=== PATIENT | male | born 1945 | race Caucasian/White ===

== ENCOUNTER 2017-04-24 09:53 | Inpatient (IN) ==
[2017-04-24] MEDS ORDERED: DILAUDID IV ONE ×2 (11:26→14:22)
[2017-04-24] MEDS ORDERED: NS 1,000 ML IV ONE ×2 (11:26→16:41)
[2017-04-24] MEDS ORDERED: ZOFRAN IV ONE ×2 (11:26→14:24)
[2017-04-24 11:35] LABS: BASO% 0.2 % (0.0-0.8); EOS# 0.02 X1000 (0.0-0.7); EOS% 0.1 % (0.0-10.0); HEMOGLOBIN 16.6 g/dL (14.0-18.0); IMM GRAN# 0.05 X1000 (0.0-0.04); IMM GRAN% 0.3 % (0.0-0.5); LYMPH% 6.6 % (20.5-51.1); MANUAL DIFF NEEDED? NO; MCHC 33.9 g/dL (33-37); MCV 91.6 FL (81-99); MONO# 1.04 X1000 (0.11-0.59); MONO% 6.3 % (1.7-9.3); MPV 11.8 FL (7.4-10.4); NEUT% 86.5 % (42.2-75.2); PLT 220 X1000 (130-400); RBC 5.35 XMIL (4.7-6.1)
[2017-04-24 12:00] LABS: AGAP 13; ALBUMIN 4.5 g/dL (3.5-5.0); ALKALINE PHOSPHATASE 96 U/L (32-122); AMYLASE 1173 U/L (20-200); BUN 15 mg/dL (8-22); CALCIUM 9.6 mg/dL (8.8-10.2); CHLORIDE 96 mmol/L (98-107); COSMO 280; GOT 108 U/L (10-34); GPT 125 U/L (10-44); POTASSIUM 4.2 mmol/L (3.5-5.1); SODIUM 138 mmol/L (136-145); TCO2 29 mmol/L (25-35); TOTAL BILIRUBIN 0.44 mg/dL (0.20-1.00); TOTAL PROTEIN 7.7 g/dL (6.3-8.3)
[2017-04-24 12:03] LABS: URINE CULTURE NEEDED? NO; URINE MICRO REVIEW NEEDED? NO; URINE SOURCE CLEAN CATCH
[2017-04-24 12:14] LABS: LIPASE 1677 U/L (13-60)
[2017-04-24 12:16] LABS: BILIRUBIN URINE NEGATIVE (NEGATIVE); BLOOD URINE NEGATIVE (NEGATIVE); COLOR YELLOW; GLUCOSE URINE TRACE mg/dL (NEGATIVE); LEUKOCYTES URINE NEGATIVE (NEGATIVE); NITRITE URINE NEGATIVE (NEGATIVE); PH URINE 6.5; PROTEIN URINE 30 mg/dL (NEGATIVE); SP GRAVITY URINE 1.021; TURBIDITY URINE CLEAR (CLEAR); UROBILINOGEN URINE 2 mg/dL (NORMAL)
[2017-04-24 12:17] LABS: UR EPITHELIAL CELLS <10 /HPF (<10); URINE BACTERIA NEGATIVE /HPF; URINE RBC <10 /HPF (<10); URINE WBC <10 /HPF (<10)
--- NOTE | 2017-04-24 13:22 | Diag Imaging Result Doc PS360 ---
EXAM: CT ABD/PELVIS W/ IV CONT ONLY HISTORY: abdominal pain TECHNIQUE: CT of the abdomen with intravenous contrast and reduced dose (clarity.) COMMENT: There are no previous studies. There are some dependent atelectasis in both lung bases. There is atherosclerotic calcification throughout the aorta. There is no evidence of aneurysm. There are calcifications in the proximal renal arteries. There is no evidence of obstruction of the mesenteric arteries. There is inflammatory fluid surrounding the pancreas. No evidence of abscess is present. There is some suggestion of a small area of decreased contrast enhancement in the neck of the pancreas which may indicate some necrosis. There is no evidence of cholelithiasis. There are granulomata in the liver. There are granulomata in the spleen. The spleen is not enlarged. The adrenal glands are not apparently enlarged. There is no evidence of hydronephrosis or mass in the kidneys. The portal vein is patent. There is no evidence of significant adenopathy or bowel obstruction. CT of the pelvis with intravenous contrast there is a fairly large amount of stool in the distal sigmoid colon. There is fluid in the rectovesical pouch. There is ankylosis of both sacroiliac joints and degenerative change in the lumbar spine. IMPRESSION: Fairly severe pancreatitis with questionable areas of necrosis in the neck of the pancreas. Minimal free intraperitoneal fluid. Constipation. Electronically signed by Saul Larkin 04/24/2017 1:20 PM
[2017-04-24] MEDS ORDERED: ROCEPHIN 1 GM/NS 1 GM/50 ML IVPB IV ONE (14:24)
[2017-04-24] MEDS ORDERED: ZOFRAN IV PRN (15:05)
[2017-04-24 15:34] LABS: HEMOGLOBIN A1C 5.6 % (4.8-6.0)
[2017-04-24 15:37] LABS: HDL 28 mg/dL (35-55); LDL 89 mg/dL; TRIGLYCERIDES 339 mg/dL (39-160); VLDL 68 mg/dL
[2017-04-24 15:38] LABS: FREE T4 1.18 ng/dL (0.93-1.70)
[2017-04-24 15:39] LABS: UR AMPHETAMINES QUAL NONE DETECTED (NONE DETECT); UR BARBITUATES QUAL NONE DETECTED (NONE DETECT); UR BENZODIAZEPIN QUAL NONE DETECTED (NONE DETECT); UR CANNABINOIDS QUAL NONE DETECTED (NONE DETECT); UR COCAINE QUAL NONE DETECTED (NONE DETECT); UR METHADONE QUAL NONE DETECTED (NONE DETECT); UR OPIATES QUAL NONE DETECTED (NONE DETECT); UR OXYCODONE QUAL NONE DETECTED (NONE DETECT); UR PCP QUAL NONE DETECTED (NONE DETECT)
--- NOTE | 2017-04-24 15:44 | HISTORY AND PHYSICAL ---
CHIEF COMPLAINT: Abdominal pain. PRIMARY CARE PHYSICIAN: Malcolm Wade MD. HISTORY OF PRESENT ILLNESS: Mr. Powell is a 71-year-old male with a history of SVT, GERD and BPH who presents with acute onset of abdominal pain that woke him up this morning around 4 a.m. He reports he awoke with a very sharp epigastric pain radiating directly into his back. The pain was unrelenting and constant and it was associated with 2 episodes of emesis and he came to the ER for evaluation. He denies any fevers or chills. He denies any hematemesis. He denies constipation, diarrhea, or hematochezia/melena. He denies any history of alcohol or drug use, he was in his normal state of health yesterday evening before he went to bed. When he came to the ER today his labs were consistent with pancreatitis and a CT showed pancreatic stranding and questionable area of necrosis in the neck of the pancreas. His vitals are stable, but he does have a white count of almost 17. We are going to admit him for further treatment and evaluation. PAST MEDICAL HISTORY: 1. GERD. 2. Hiatal hernia. 3. Hypertension. 4. Supraventricular tachycardia. 5. Chronic back pain. 6. Benign prostatic hypertrophy. SURGICAL HISTORY: Bilateral knee arthroplasties. SOCIAL HISTORY: Patient denies tobacco, alcohol or drug use. 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 He is . His daughter is at the bedside. He lives in [place]. FAMILY HISTORY: Noncontributory. REVIEW OF SYSTEMS: Fourteen-point review of systems obtained and found to be negative with the exception of the HPI. ALLERGIES: Meperidine and morphine. MEDICATIONS: Aspirin 81 mg daily. Zebeta 5 mg daily. Digoxin 250 mcg p.o. a.m. Naproxen 500 mg b.i.d. Omeprazole 40 mg a.m. Flomax 0.4 mg daily. PHYSICAL EXAMINATION: VITAL SIGNS: Blood pressure is 175/94, heart rate 66, respiratory rate is 18, O2 saturation 95% on room air. Temperature is afebrile. GENERAL: This is a well-developed, well-nourished, 71-year-old male, lying in hospital bed in no acute distress. NEUROLOGIC: The patient is awake, alert, and oriented. He follows commands without focal deficits. HEENT: Atraumatic, normocephalic. His pupils are equal, round, reactive to light. Oral mucosa is moist. Trachea is midline. There is no JVD or carotid bruits. CHEST: Clear to auscultation bilaterally. CARDIOVASCULAR: Regular rate and rhythm. S1-S2 is noted. No murmurs, gallops , clicks, rubs. GASTROINTESTINAL: Fairly severe epigastric tenderness to palpation, but belly is overall soft and nondistended. Bowel sounds are hypoactive. EXTREMITIES: Trace edema. No clubbing or cyanosis. Pulses are palpable bilaterally. DIAGNOSTIC DATA/LABORATORY: CT of the abdomen and pelvis shows fairly severe pancreatitis with questionable necrosis about the head. WBC 16.64. Hemoglobin 16.6, hematocrit 49. Platelet count 220,000. Sodium 138, potassium 4.2, chloride 96, CO2 29, anion gap 13, BUN 15, creatinine 0.8, glucose 164, calcium 9.6, bilirubin 0.44, AST 108, ALT 125, alkaline phosphatase 96, albumin 4.5, amylase 1173, lipase 1677. UA is negative for acute process. ASSESSMENT AND PLAN: 1. Acute pancreatitis: Etiology is unclear at this time, but we will begin evaluation with a right upper quadrant ultrasound to look at his gallbladder, we will check alcohol level and drug screen, thyroid function, IgG subclass and lipid panel. We will be aggressive with fluid resuscitation. He has been given a liter in the emergency room. We will continue with 2 more liters wide-open and then go to 150 mL an hour. Given the severity of the pancreatitis, we are going to consult Gastroenterology as well. We will keep him nothing per oral with antiemetics, pain medication and intravenous proton pump inhibitor. We are also going to add Zosyn antibiotics for leukocytosis. 2. Leukocytosis: We will check blood cultures and start Zosyn. We will also check a portable chest x-ray. 3. Hypertension: Chronic and stable. We will treat with IV blood pressure medications as needed. 4. History of supraventricular tachycardia: We will check a digoxin level and hold his digoxin today. His heart rate is stable. 5. Deep venous thrombosis prophylaxis with Lovenox. Further recommendations to follow. Dictated by MELINA Lima for Nelly Silva MD cc: Jori J. MELINA Altamirano MD John V. Irle, MD The patient was seen and examined by me. I agree with the assessment and plan as dictated. GERMAND
--- NOTE | 2017-04-24 16:01 | Diag Imaging Result Doc PS360 ---
EXAM: US GB < RUQ (LIMITED) HISTORY: acute pancreatitis TECHNIQUE: Transabdominal scan COMMENT: The study is markedly suboptimal due to the patient's body habitus. The liver is hyperechoic and poor detail is seen in the deeper portions. The gallbladder may contain some sediment. There is no sonographic Pro sign. No para cholecystic fluid is present. The aorta and inferior vena cava are not well demonstrated. The pancreas is obscured. There is antegrade flow in the portal vein. The common bile duct measures 4 mm. Right kidneys without evidence of hydronephrosis or mass. No abnormal fluid collections are demonstrated. IMPRESSION: Possibility of small soft stones or sludge in the gallbladder cannot be excluded. No evidence of acute cholecystitis. Hepatic steatosis. Electronically signed by Saul Larkin 04/24/2017 3:58 PM
[2017-04-24] MEDS ORDERED: NS 1,000 ML IV SCH (17:06)
[2017-04-24] MEDS ORDERED: NS 2,000 ML IV ONE (17:06)
--- NOTE | 2017-04-24 17:13 | CONSULTATION ---
DATE OF CONSULTATION: 04/24/2017 ADMITTING PHYSICIAN: Dr. Kwan. PRIMARY CARE PHYSICIAN: Dr. Malcolm Wade. REASON FOR CONSULTATION: Necrotizing pancreatitis. HISTORY OF PRESENT ILLNESS: Mr. Powell is a 71-year-old male who was admitted today through the emergency room with epigastric pain of acute onset. According to the patient he woke up at 4:00 a.m. today with severe epigastric pain. He also developed nausea and vomiting. He threw up twice at home which was undigested food and clear stuff. He did not notice any blood in the vomitus. He ate 2 slices of pizza last night before going to bed. He denied having any previous episodes of similar pain in the past. He has had EGD colonoscopy done many years ago by Dr. Osborn and at that time was told he has reflux disease, hiatal hernia and colon was normal. The patient in the ER had blood work which showed evidence of elevated lipase of 1677, amylase of 1173. He had a CT scan of the abdomen and pelvis done which showed severe pancreatitis with questionable necrosis about the head/neck of the pancreas. The patient denies any history of alcohol use. He denies any prior history of pancreatitis and denies any family history of pancreatitis or pancreatic disorders. He denies any prior known history of severe hypertriglyceridemia or any evidence of problems with a calcium level in the blood. He still has a gallbladder but denies any prior history of any gallbladder problems. In the hospital he has been given IV fluids, IV pain control, IV antiemetics. His last bowel movement was yesterday AM. PAST MEDICAL HISTORY: 1. History of reflux disease. 2. Hiatal hernia. 3. Hypertension. 4. Supraventricular tachycardia. 5. Chronic back pain. 6. BPH. SURGICAL HISTORY: Is bilateral knee arthroplasties and EGD and colonoscopy many years ago by Dr. Osborn. SOCIAL HISTORY: Denies history of tobacco, alcohol or illicit drugs. 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 He is . He lives in [place]. FAMILY HISTORY: Denies history of pancreatitis with the family. REVIEW OF SYSTEMS: Denies any current fevers, rigors, or chills, chest pain, shortness of breath, dyspnea at rest. Denies any genitourinary or neurologic complaints. Denies history of vomiting blood, passing blood in the stools. ALLERGIES TO: Meperidine and morphine. USUAL MEDICATIONS AT HOME INCLUDE: 1. Aspirin 81 every day. 2. Zebeta 5 mg every day. 3. Naproxen 5 mg p.o. b.i.d. 4. Omeprazole 40 mg daily. 5. Flomax 0.4 mg daily. MEDICATIONS IN THE HOSPITAL: Were reviewed and include Dilaudid IV once, Zofran IV once. Rocephin IV once 1 g. IV fluids at 1 L wide open. He is NPO. PHYSICAL EXAM: Temperature of 97.4, pulse rate of 64, respiratory rate 17, blood pressure 172/90, saturating 94% room air. Body weight of 155 pounds. BMI 22.9 kg.General Appearance: Moderately built, moderately nourished, lying in bed, in distress with abdominal pain. HEENT: No pallor. No icterus. Pupils equal, react to light. Neck: Supple. Chest: Reveals irregular rhythm. No murmur. Abdomen: Discomfort and tenderness epigastrium. No rebound, no guarding. Bowel sounds are hypoactive. No hepatosplenomegaly. Extremities: No cyanosis, clubbing, edema. Neuro: Alert, awake, oriented. LABS: Hemoglobin and hematocrit is 16.6 and 49, white count 16.64, platelet count of 220,000. MCV of 91.6. Sodium 130, potassium 4.2, chloride 96, bicarb 29, anion gap 13. BUN of 15, creatinine 0.8, glucose of 164. Calcium 9.6, magnesium 2. Ferritin of 359. Total bilirubin is 0.44. AST 108, ALT 125. Alkaline phosphatase 96. Total protein 7.7, albumin of 4.5. Triglycerides 339, cholesterol 195. HDL 28, amylase of 1173, lipase of 1677. B12 of 492. Folate of 14. TSH 3.9. Urinalysis showing positive protein, trace ketones. Toxicology screen is negative. Plasma alcohol level was 0. CT scan of the abdomen and pelvis done on 04/24/2017 showed: 1. Some dependent atelectasis in both lung bases. 2. Atherosclerotic calcifications throughout the aorta. 3. Calcifications in the proximal renal arteries. 4. No evidence of obstruction of the mesenteric arteries. 5. Inflammatory fluid surrounding the pancreas. No evidence of any abscess is present. 6. Small area of decreased contrast enhancement in the neck of the pancreas which may indicate early some necrosis. No evidence of cholelithiasis. There are granulomata in the liver. There are granulomata in the spleen. The spleen is not enlarged. Portal vein is patent. Large amount of stool in the distal sigmoid colon. Ankylosis of both sacral iliac joints and degenerative changes of the lumbar spine. Ultrasound of the abdomen was done today which showed possibility of small gallstones or sludge in the gallbladder. No evidence of any acute cholecystitis. Hepatic steatosis. CBD measuring 4 mm. IMPRESSION AND PLAN: 1. Gallstone pancreatitis. Liver enzymes elevated, elevated pancreatic enzymes and ultrasound showing possible gallstones and gallbladder sludge. 2. Constipation. 3. Reflux disease. 4. Arthritis. 5. BPH. 6. Hiatal hernia. RECOMMENDATIONS: 1. Will keep the patient on aggressive IV fluids. Will keep vitamin fluids under the 1st 3 L and then will switch him to IV normal saline at 250 mL/h for the next 24 hours. 2. Continue on IV antiemetics, IV pain control. We will keep him on IV Protonix for GI prophylaxis. 3. We will check his labs, amylase, lipase and CBC and CMP in the morning. 4. Patient will be NPO for the next 24 hours until he is able to pass flatus and his nausea resolves. We will reassess in the morning and decide if he can be started on clear liquid diet. We will also call General Surgery consult as the patient likely has gallstone pancreatitis and will need cholecystectomy at some point during this admission. 5. Will avoid any kind of hepatotoxic and pancreatic toxic drugs. We will follow along and I discussed the above plan with the patient and all questions answered. cc: MD Malcolm Juarez MD Katherine Takundwa, MD MTDD
[2017-04-24] MEDS: PROTONIX IV SCH (17:35)
[2017-04-24] MEDS: SODIUM CHLORIDE 0.9% INJ SCH (17:35)
[2017-04-24] MEDS: ZOSYN 3.375 GM/NS 3.375 GM/50 ML IVPB IV SCH ×2 (17:38→22:43)
[2017-04-24] MEDS: LOVENOX SUBQ SCH (17:43)
--- NOTE | 2017-04-24 18:14 | CONSULTATION ---
DATE OF CONSULTATION: 04/24/2017 CHIEF COMPLAINT: Epigastric pain. HISTORY: This is a 71-year-old, white male who reports the onset of epigastric pain radiating into his back last night. He had pizza last night for supper. The pain awakened him and then it worsened so he sought medical attention. He does have some nausea and vomiting with this. Denies fever, chills, constipation, diarrhea. Denies any recent alcohol use. PAST MEDICAL HISTORY: Pertinent for gastroesophageal reflux, a hiatal hernia, hypertension, supraventricular tachycardia, chronic back pain, and benign prostatic hypertrophy. He has had bilateral knee replacement. SOCIAL HISTORY: He is . Denies tobacco, alcohol or drug use. FAMILY HISTORY: Noncontributory. REVIEW OF SYSTEMS: Pertinent for the epigastric pain and nausea. Otherwise negative. MEDICATION: Includes aspirin, Zebeta, digoxin, naproxen, omeprazole, and Flomax. ALLERGIES: He has intolerance to meperidine and morphine. PHYSICAL EXAMINATION: Vital Signs: Afebrile. Heart rate 112, respiratory rate is 19, blood pressure 163/94. Neck: No cervical adenopathy. Lungs: Bilateral breath sounds. Heart: Regular rate and rhythm. Abdomen: He is tender in the epigastrium. Extremities: Femoral pulses are present. No peripheral edema. Neurologic: He is awake and alert. DIAGNOSTICS/LABS: White count 16,600. AST 108, ALT 125, alkaline phosphatase normal at 96. Total bilirubin normal at 0.44. Triglycerides 339. Amylase 1173, lipase 1677. ASSESSMENT: Probable gallstone pancreatitis based on ultrasound which suggests sludge. PLAN: The plan is to allow his pancreas to settle down and have his enzymes begin to normalize, at which time we will consider him for a laparoscopic cholecystectomy. I have discussed this with him. He understands and agrees. cc: Karri Bahena MD
[2017-04-24] MEDS: DILAUDID IV PRN (19:50)
[2017-04-24] MEDS: LR 1,000 ML IV SCH (19:51)
[2017-04-25] MEDS ORDERED: LANOXIN IV ONE (00:26)
[2017-04-25] MEDS ORDERED: LANOXIN ONE (00:34)
[2017-04-25] MEDS: DILAUDID IV PRN ×6 (01:23→20:13)
[2017-04-25] MEDS: LR 1,000 ML IV SCH (02:00)
[2017-04-25] MEDS: ZOSYN 3.375 GM/NS 3.375 GM/50 ML IVPB IV SCH ×4 (05:06→23:01)
[2017-04-25 06:38] LABS: HEMATOCRIT 54.2 % (42.0-52.0); HEMOGLOBIN 18.5 g/dL (14.0-18.0); MCH 31.6 PG (27-31); MCHC 34.1 g/dL (33-37); MCV 92.6 FL (81-99); MPV 11.5 FL (7.4-10.4); RBC 5.85 XMIL (4.7-6.1)
[2017-04-25 07:07] LABS: AGAP 18; ALBUMIN 3.9 g/dL (3.5-5.0); ALKALINE PHOSPHATASE 75 U/L (32-122); BUN 14 mg/dL (8-22); CHLORIDE 99 mmol/L (98-107); COSMO 284; GOT 33 U/L (10-34); GPT 68 U/L (10-44); LIPASE 455 U/L (13-60); POTASSIUM 4.6 mmol/L (3.5-5.1); SODIUM 141 mmol/L (136-145); TCO2 24 mmol/L (25-35); TOTAL PROTEIN 7.3 g/dL (6.3-8.3)
[2017-04-25 07:42] LABS: CALCIUM 8.1 mg/dL (8.8-10.2)
[2017-04-25] MEDS: LANOXIN IV SCH (08:07)
[2017-04-25] MEDS ORDERED: LR 1,000 ML IV SCH (09:50)
[2017-04-25] MEDS ORDERED: NS 1,000 ML IV ONE (09:54)
[2017-04-25] MEDS ORDERED: NS 1,000 ML ONE (09:57)
[2017-04-25] MEDS: NS 1,000 ML IV SCH ×3 (11:03→20:06)
--- NOTE | 2017-04-25 11:17 | PROGRESS NOTE ---
DATE: 04/25/2017 ADMITTING PHYSICIAN: Dr. Silva. PRIMARY PHYSICIAN: Dr. Wade. SUBJECTIVE: Patient resting in bed. He complains of back pain in the thoracic area. He also feels his heart racing. He has a prior history of SVT. He is being followed by Dr. Pro at [facility]. The patient denies any chest pain or shortness of breath at this time. The patient was admitted with severe pancreatitis yesterday and he is getting IV fluids and he is currently NPO. His amylase, lipase and liver enzymes are trending down but is hemoconcentrated suggesting third spacing. In this regard we will increase his fluids and give him 1 L bolus and then switch him to normal saline 250 mL/h. The patient is requesting a Cardiology consult as he has previous history of SVTs. The patient denies any fevers, rigors, chills. Denies any nausea or vomiting. He is passing some flatus. He has not had a bowel movement in the last 24 hours. Vital signs: Temperature 97.7 degrees, pulse rate of 129, respiratory rate of 22, blood pressure 120/78, saturating 92% on room air. General Appearance: Thinly built, lying in bed, in no acute distress. HEENT: No pallor. No icterus. Pupils equal, react to light. Neck : Supple. Chest: Decreased. Cardiac: Tachycardic. Abdomen: Epigastric pain. No rebound or guarding. Bowel sounds are hypoactive. Extremities: No cyanosis, clubbing, edema. Neurologic: Alert, awake, oriented. LABS: Hemoglobin and hematocrit is 18.5 and 54.2, white count of 27.2, platelet count of 189,000. MCV of 92.6. Sodium 141, potassium 4.6, chloride 99, bicarb 24, anion gap of 18. BUN of 14, creatinine 1, glucose of 139, calcium is 8.1, total bilirubin is 1. AST 33, ALT 16, alkaline phosphatase is 75, total protein 7.3, albumin of 3.9. Triglycerides 339, amylase 30, lipase is down to 455. IMPRESSION AND PLAN: 1. Gallstone pancreatitis. Continue on conservative management. He is NPO for now. We will watch how he does and may be able to start him on ice chips. Maybe a clear liquid diet tomorrow once starts passing flatus and abdominal pain is improved. We will continue aggressive IV fluids, IV antiemetics and IV pain control. 2. Gallstones per the ultrasound. Appreciate Dr. Bahena's consultation. Patient will need a cholecystectomy once the pancreatitis cools down. 3. Tachycardia which could be secondary to hemoconcentration and acute pancreatitis. The patient has a known history of SVT and he wants it to be investigated so we will call Cardiology consult in order to pursue workup and evaluate for SVT. 4. GI prophylaxis with PPIs. 5. We will continue on watching the labs in the form of CBC, electrolytes, amylase and lipase in the morning. 6. Hypertriglyceridemia which needs to be managed as an outpatient once the pancreatitis is cool down per the primary care team. The above plan explained to the patient and the nurse and all questions answered. cc: MD Malcolm Juarez MD Katherine Takundwa, MD Dr. Walker Ashish K. Basu, MD [facility] CENTERVeronica
[2017-04-25 11:24] LABS: HEPATITIS PROFILE ACUTE SEE COMMENTS
--- NOTE | 2017-04-25 11:47 | PROGRESS NOTE ---
DATE: 04/25/2017 SUBJECTIVE: The patient is resting comfortably in bed. He still complains of epigastric pain but no nausea or vomiting. OBJECTIVE: Vital Signs: Temperature 97 degrees, blood pressure 120/78, heart rate 132, respirations 22, O2 saturations is 96% on room air. General: This is an elderly male, lying in bed, in no acute distress. HEENT: Head normocephalic and atraumatic. Heart: S1 and S2 normal, tachycardic. Lungs: Clear to auscultation bilaterally. Abdomen: Positive bowel sounds. Soft. Positive for epigastric tenderness. Extremities: No edema. No cyanosis. No calf tenderness. Neurologic: The patient is alert and oriented x3. Labs: White blood cell count 27, hemoglobin 18, hematocrit 54, platelets 189, 000. Sodium 145, potassium 4.6, chloride 99, CO2 24, BUN 14, creatinine 1, glucose 139, calcium 8.1. AST 33, ALT 68, total bilirubin 1, lipase 455. ASSESSMENT AND PLAN: 1. Severe gallstone pancreatitis. The patient's lipase is trending downward. However, his white blood cell count is trending upward. The patient is afebrile and is currently on Zosyn. We will continue on this regimen for now. Gastroenterology is also following. Continue with npo status, intravenous fluids, intravenous antiemetics, and intravenous pain medication. General surgery is following for a possible cholecystectomy once the pancreatitis has improved. 2. Tachycardia. Cardiology has already been consulted. We will await their recommendations. 3. Gastrointestinal prophylaxis. Continue on Protonix. 4. Deep vein thrombosis prophylaxis. Continue on Lovenox. cc: Nelly Silva MD MTDD
--- NOTE | 2017-04-25 12:03 | CONSULTATION ---
DATE OF CONSULTATION: 04/25/2017 Mr. Powell is a 71-year-old gentleman. Cardiology was consulted given his history of SVT. From a cardiac standpoint, he does not complain of chest pain or palpitations. He has been followed by Cardiology in [place] for the last 4 years. He has not had any supraventricular tachycardia. However he has been admitted with significant abdominal discomfort and has gallbladder pancreatitis and has noticed some extra beats. He denies chest pain suggestive of angina. He also has chronic back pain. He was admitted with very sharp epigastric discomfort radiating to his back with episodes of emesis and a CT scan showed pancreatitis and subsequently admitted. PAST MEDICAL HISTORY: Supraventricular tachycardia. Chronic back pain followed by Sports [facility] in [place]. Benign prostatic hypertrophy, hypertension, hiatal hernia, gastroesophageal reflux disease, bilateral knee arthroplasties. REVIEW OF SYSTEMS: Next 14 point review of system was done. GI System: As above. Cardiovascular System: As above. In addition, there are no palpitations or syncope. System: There is no dysuria or hematuria. Respiratory System: There is no history of cough, expectoration, hemoptysis. There is no history of fevers or chills. ALLERGIES: To meperidine, morphine. HOME MEDICATIONS: Aspirin 81, Zebeta 5, digoxin 250, Naprosyn, omeprazole. EXAMINATION: When he came in, blood pressure was 175/94. At the time of my examination, blood pressure 120/78. Cardiovascular System: Normal jugular venous pressure. There is no thyromegaly. No carotid bruit. First and second heart sounds were heard. There is no S3 gallop. Respiratory System: Normal air entry. There are no crepitations or rhonchi. Abdomen: Was soft. There was tenderness diffuse in the epigastric region. Bowel sounds heard. Central Nervous System: Alert, oriented, was moving all 4 extremities. Extremities: Examination of extremities revealed no pedal edema. HEENT: Atraumatic, normocephalic. Pupils were equal and reacting to light. WBC 27.2, hemoglobin 18, hematocrit 54, platelet count of 189,000. Sodium 146, potassium 4.6, BUN 14, creatinine 1.0, magnesium 2.0. Abnormal AST and ALT when he was admitted. CT scan of the abdomen and pelvis showed a severe pancreatitis, area of necrosis in the neck of the pancreas. ASSESSMENT AND PLAN: Mr. Malcolm Powell is a 71-year-old gentleman with history of SVT, hypertension. He is doing well from a cardiac standpoint. He has not had further SVTs in the last 5 years. We will get an EKG. His telemetry revealed normal sinus rhythm and sinus tachycardia rate varying from 90-100. Would recommend restarting his home medications when appropriate. He is currently NPO given his severe pancolitis. We will also get an echocardiogram to assess cardiac and valvular function. Continue with other medications as planned for his pancreatitis. Thank you for the consult. cc: Houston García MD
--- NOTE | 2017-04-25 12:51 | EKG Report ---
Test Performed on : 04/25/2017 11:38:28 AM Test Reason : svt Blood Pressure : / mmHG Vent. Rate : 112 BPM Atrial Rate : 112 BPM P-R Int : 162 ms QRS Dur : 092 ms QT Int : 298 ms P-R-T Axes : 021 -13 123 degrees QTc Int : 406 ms Sinus tachycardia. Inferior infarct , age undetermined Abnormal ECG No previous ECGs available Confirmed by Luis Antonio HARDEN, Terence Méndez ([id number]) on 04/25/2017 9:07:33 PM
[2017-04-25] MEDS: SODIUM CHLORIDE 0.9% INJ SCH (17:15)
[2017-04-25] MEDS: LOVENOX SUBQ SCH (17:15)
[2017-04-25] MEDS: PROTONIX IV SCH (17:43)
--- NOTE | 2017-04-25 20:18 | ECHO REPORT ---
ORDER DATE: 04/25/2017 INTERPRETING PHYSICIAN: Dr. Vo REQUESTING PHYSICIAN: CLINICAL INDICATIONS: A 71-year-old male with supraventricular tachycardia, hypertension. M-MODE MEASUREMENTS: Right ventricle: Not dilated. Left ventricle end diastole: 2.7 cm. Left ventricle end systole: 1.9 cm. Posterior wall: 1.2 cm. Interventricular septum: 1.2 cm. Left atrium: 2.7 cm. Aortic root: 3.6 cm. SUMMARY OF 2-DIMENSIONAL IMAGING: The left ventricular function is normal. Ejection fraction is hyperdynamic. The patient is tachycardic. Ejection fraction is in the order of 75% to 80%. The right ventricle is also hyperdynamic. It is not dilated. The pulmonic valve looks normal. Color flow mapping unremarkable. The aortic valve looks normal. Color flow mapping also appears to be unremarkable. The mitral valve looks normal. Color flow mapping of mitral valve shows no regurgitation. Pulse wave Doppler of mitral inflow shows fusion of the E and the A wave. Tissue Doppler of septal and lateral mitral annulus averages 6 cm per second. There may be impaired left ventricular relaxation although it is difficult to analyze diastolic function because of the tachycardia. The tricuspid valve shows no regurgitation. The inferior vena cava is not dilated. The aortic valve actually showed a very mild degree of aortic regurgitation. There was some thickening of the aortic valve cusps without stenosis. IMPRESSION: In summary, this study shows: 1. Technically difficult study due to patient being tachycardic. 2. Excellent left ventricular systolic function. Ejection fraction 75-80%. 3. Mild degree of sclerosis of aortic valve cusp with trivial degree of aortic regurgitation. 4. Suspected impaired left ventricular relaxation. 5. Unremarkable tricuspid and pulmonic valves. Clinical correlation recommended. cc: MD Houston Verma MD
[2017-04-26] MEDS: NS 1,000 ML IV SCH ×5 (01:08→21:04)
[2017-04-26] MEDS: DILAUDID IV PRN ×4 (01:48→20:27)
[2017-04-26] MEDS: ZOSYN 3.375 GM/NS 3.375 GM/50 ML IVPB IV SCH ×2 (04:22→12:55)
[2017-04-26 07:43] LABS: HEMATOCRIT 47.6 % (42.0-52.0); HEMOGLOBIN 15.9 g/dL (14.0-18.0); MCH 31.7 PG (27-31); MCHC 33.4 g/dL (33-37); MPV 11.2 FL (7.4-10.4); RBC 5.01 XMIL (4.7-6.1)
[2017-04-26 07:58] LABS: AGAP 13; ALBUMIN 2.9 g/dL (3.5-5.0); ALKALINE PHOSPHATASE 59 U/L (32-122); BUN 13 mg/dL (8-22); CALCIUM 7.2 mg/dL (8.8-10.2); CHLORIDE 102 mmol/L (98-107); COSMO 276; GOT 24 U/L (10-34); GPT 32 U/L (10-44); LIPASE 117 U/L (13-60); POTASSIUM 4.2 mmol/L (3.5-5.1); SODIUM 138 mmol/L (136-145); TCO2 23 mmol/L (25-35); TOTAL BILIRUBIN 0.98 mg/dL (0.20-1.00)
[2017-04-26] MEDS: LANOXIN IV SCH (09:33)
--- NOTE | 2017-04-26 12:21 | PROGRESS NOTE ---
DATE: 04/26/2017 SUBJECTIVE: The patient is resting comfortably in bed. He states that he has been tolerating ice chips without any difficulty. OBJECTIVE: Vital Signs: Temperature 99 degrees, blood pressure 117/73, heart rate 118, respirations 16, O2 saturations 92% on room air. General: This is an elderly male sitting at the edge of the bed in no acute distress. Head: Normocephalic, atraumatic. Heart: S1, S2. Normal. Tachycardic. Lungs: Clear to auscultation bilaterally. Abdomen: Positive bowel sounds. Soft. Positive for epigastric tenderness. Extremities: No edema. No cyanosis. No calf tenderness. Neurologic: The patient is alert and oriented x3. LABS: White blood cell count 25, hemoglobin 15, hematocrit 47, platelets 139. Sodium 138, potassium 4.2, chloride 102, CO2 23, BUN 13, creatinine 0.8, glucose 107. Calcium 7.2 and magnesium 1.7. AST 24, ALT 32, total bilirubin 0.9. Lipase 117. ASSESSMENT AND PLAN: 1. Severe acute pancreatitis. Continue with aggressive intravenous fluid hydration. The patient is currently on nothing by mouth. Continue on intravenous pain medication and as-needed antiemetic therapy. Gastroenterology and general surgery are following. 2. Gallstone pancreatitis. General surgery is following for a potential cholecystectomy once the patient's pancreatitis is improved. 3. Leukocytosis. Slowly improving. We will consult infectious disease for further intravenous antibiotic recommendations. 4. Hypertension. Controlled. 5. Chronic back pain. Aware. 6. Gastrointestinal prophylaxis. Continue on intravenous Protonix. 7. Deep vein thrombosis prophylaxis. Continue on Lovenox. cc: Nelly Silva MD
--- NOTE | 2017-04-26 12:48 | CONSULTATION ---
DATE OF CONSULTATION: 04/26/2017 CONCLUSION: The patient has gallstone pancreatitis. He does have a leukocytosis. White count is high but today's white count actually was a little bit less than yesterday's, and clinically he looks like he is doing quite well. RECOMMENDATIONS: I agree with treating the patient with Zosyn. I have increased the dose to 4.5 g IV every 6 hours. DISCUSSION: The patient yesterday had the sudden onset of abdominal pain which was very intense and radiated into his back. He also had nausea and vomiting. He on the ultrasound was found to have gallbladder which had either stones and/or sludge in it. CT scan of the abdomen showed pancreatitis with possible necrosis. Creatinine 0.8. GFR is greater than 60. Liver function studies are normal. An echocardiogram did not show any vegetations. Hepatitis panel was negative. Blood cultures are sterile. [place] [address], hemoglobin 15.9, and platelet count 139,000. Creatinine 0.8. GFR is greater than 60. PAST MEDICAL HISTORY/REVIEW OF SYSTEMS: HEENT: He denies difficulty hearing or seeing. Neck: No stiffness. Integument: No rash. Respiratory: No cough or shortness of breath. Cardiac: No chest pain or palpitations. GI: He is having intense abdominal pain as mentioned above. He had some nausea and vomiting but he has not passed a stool yet which is not unusual for him. Genitourinary: Patient states that he is having a little bit of dysuria but it is getting better. Hematologic: No history of bleeding or anemia. Endocrine: No history of diabetes or thyroid disease. Bones, joints and muscles: The patient has chronic low back pain. He also had a fusion of his C-spine because of joint disease. The remainder of the review of systems was completed and was negative. PREVIOUS HOSPITALIZATIONS AND OPERATIONS: He has had double knee replacement at the same time. MEDICAL DISEASES: 1. Positive for degenerative joint disease. 2. Hypertension. 3. Supraventricular tachycardia. 4. Elevated triglycerides. INFECTIOUS DISEASE HISTORY: Positive for UTI. FAMILY HISTORY: Positive for myocardial infarction and cancer. SOCIAL HISTORY: [place] He does not smoke cigarettes or drink alcoholic beverages or he does not use any drugs. He is . He does not have any pets at home. He works in electronics. ALLERGIES: He is allergic to Demerol and morphine. HOME MEDICATIONS: 1. Naproxen. 2. Zebeta. 3. Flomax. 4. Omeprazole. 5. Digoxin. 6. Aspirin. PHYSICAL EXAMINATION: Vital Signs: Temperature is 99.5 degrees, pulse 118, respirations 16, blood pressure 117/73. Generally: This is a fairly healthy-appearing, elderly male. He is in no acute distress. Head, eyes, ears, nose, and throat: Can hear my spoken words and see near objects. No drainage noted from the nose or ears. There were no white patches on his tongue. Neck: No meningismus. Thorax: No increased AP diameter to the chest. Lungs: Clear to auscultation. Cardiovascular: Regular heart rate. Peripheral pulses are palpable. Abdomen: Soft, but it was tender mainly in the midpart of the abdomen. Bowel sounds were heard. Neurologic: The patient is alert. He can move his extremities. There is no tremor. His sensation is intact to touch. His memory, as regarding his medical history is intact. Extremities: Patient has leg edema. Integument: No rash. Thank you for the consult. cc: Farrukh Harrell MD
[2017-04-26] MEDS: ZOSYN 4.5 GM/NS 4.5 GM/100 ML IVPB IV SCH ×2 (12:58→16:56)
--- NOTE | 2017-04-26 13:22 | Diag Imaging Result Doc PS360 ---
CHEST-PORTABLE - 04/26/2017 INDICATION: dyspnea TECHNIQUE: COMPARISON: None FINDINGS: There is substantial hazy infiltrate at the left lower lobe. Heart size is borderline enlarged. There is pulmonary vascular congestion. No pneumothorax or large effusion. IMPRESSION: Nonspecific findings. Electronically signed by Maury Arita 04/26/2017 1:19 PM
[2017-04-26] MEDS: SODIUM CHLORIDE 0.9% INJ SCH (17:01)
[2017-04-26] MEDS: PROTONIX IV SCH (17:01)
[2017-04-26] MEDS: LOVENOX SUBQ SCH (18:05)
[2017-04-27] MEDS: ZOSYN 4.5 GM/NS 4.5 GM/100 ML IVPB IV SCH ×5 (01:12→19:38)
[2017-04-27] MEDS: NS 1,000 ML IV SCH ×3 (03:28→16:23)
[2017-04-27] MEDS: DILAUDID IV PRN ×4 (03:35→20:25)
[2017-04-27 06:45] LABS: HEMATOCRIT 38.9 % (42.0-52.0); HEMOGLOBIN 12.7 g/dL (14.0-18.0); MCH 31.1 PG (27-31); MCHC 32.6 g/dL (33-37); MCV 95.1 FL (81-99); MPV 11.5 FL (7.4-10.4); RBC 4.09 XMIL (4.7-6.1)
[2017-04-27 07:07] LABS: AGAP 10; ALBUMIN 2.7 g/dL (3.5-5.0); ALKALINE PHOSPHATASE 54 U/L (32-122); BUN 13 mg/dL (8-22); CALCIUM 7.7 mg/dL (8.8-10.2); CHLORIDE 106 mmol/L (98-107); COSMO 280; GOT 13 U/L (10-34); GPT 20 U/L (10-44); LIPASE 37 U/L (13-60); POTASSIUM 3.8 mmol/L (3.5-5.1); SODIUM 140 mmol/L (136-145); TCO2 24 mmol/L (25-35); TOTAL BILIRUBIN 0.66 mg/dL (0.20-1.00); TOTAL PROTEIN 5.5 g/dL (6.3-8.3)
[2017-04-27] MEDS: LANOXIN IV SCH (08:50)
--- NOTE | 2017-04-27 12:18 | PROGRESS NOTE ---
DATE: 04/27/2017 SUBJECTIVE: The patient says his pain is starting to improve. He is still having some nausea. OBJECTIVE: Vital signs: He is afebrile. Vital signs are stable. General: He is awake, alert, in no acute distress. He is oriented x4. CV: Regular rate and rhythm. Respiratory: No work of breathing. GI Soft, nondistended, mildly tender in the epigastrium. No rebound or guarding. LABORATORY: White blood cell count 18,000, hemoglobin 12.7, hematocrit 38.9. Electrolytes reviewed and unremarkable. Lipase is 37 this morning. ASSESSMENT AND PLAN: A 71-year-old male with gallstone pancreatitis. He is showing some improvement. We will continue with clear liquids only for now and hydration. Cholecystectomy once his pancreatitis improves more. cc: Clayton Branham MD
--- NOTE | 2017-04-27 12:58 | PROGRESS NOTE ---
DATE: 04/27/2017 SUBJECTIVE: The patient is resting comfortably in bed. He states that his abdominal pain has improved. He is tolerating a clear liquid diet without any difficulty. OBJECTIVE: Vital signs: Temperature 98, blood pressure 147/73, heart rate 91, respirations 19, O2 sat is 92% on room air. General: This is an elderly male lying in bed in no acute distress. HEENT: Head normocephalic, atraumatic. Heart: S1, S2 normal. Regular rate and rhythm. Lungs: Clear to auscultation bilaterally, no wheezing, no rales, no rhonchi. Abdomen: Positive bowel sounds, soft, nontender, nondistended. Extremities: No edema, no cyanosis, no calf tenderness. Neurological: The patient is alert and oriented x3. LABS: White blood cell count 18, hemoglobin 12, hematocrit 38, platelets 128. Sodium 140, potassium 3.8, chloride 106, CO2 of 24, BUN 13, creatinine 0.7, glucose 102. Calcium 7.7, total protein 5.5, AST 13, ALT 20. Lipase 37. ASSESSMENT AND PLAN: 1. Severe acute pancreatitis. The patient's lipase is now normal, and the patient is tolerating a clear liquid diet. Will continue to monitor closely. 2. Gallstone pancreatitis. General Surgery is following for an eventual cholecystectomy. 3. Leukocytosis. Slowly improving. Continue on Zosyn. 4. Hypertension. Controlled. 5. Chronic back pain. Continue on p.r.n. Dilaudid. 6. GI prophylaxis. Continue on IV Protonix. 7. DVT prophylaxis. Continue on Lovenox. cc: Nelly Silva MD
[2017-04-27] MEDS: SODIUM CHLORIDE 0.9% INJ SCH (16:24)
[2017-04-27] MEDS: PROTONIX IV SCH (16:24)
[2017-04-27] MEDS: LOVENOX SUBQ SCH (16:24)
[2017-04-28] MEDS: ZOSYN 4.5 GM/NS 4.5 GM/100 ML IVPB IV SCH ×4 (00:07→16:37)
[2017-04-28] MEDS: NS 1,000 ML IV SCH ×3 (03:11→23:21)
[2017-04-28] MEDS: DILAUDID IV PRN ×4 (03:17→23:59)
[2017-04-28 06:49] LABS: MANUAL DIFF NEEDED? NO
[2017-04-28 06:55] LABS: BASO% 0.1 % (0.0-0.8); EOS# 0.64 X1000 (0.0-0.7); EOS% 4.1 % (0.0-10.0); HEMATOCRIT 36.1 % (42.0-52.0); HEMOGLOBIN 12.3 g/dL (14.0-18.0); IMM GRAN# 0.09 X1000 (0.0-0.04); IMM GRAN% 0.6 % (0.0-0.5); LYMPH# 1.44 X1000 (1.2-3.4); LYMPH% 9.2 % (20.5-51.1); MCH 31.1 PG (27-31); MCHC 34.1 g/dL (33-37); MCV 91.4 FL (81-99); MONO# 1.29 X1000 (0.11-0.59); MONO% 8.2 % (1.7-9.3); MPV 11.1 FL (7.4-10.4); NEUT% 77.8 % (42.2-75.2); PLT 154 X1000 (130-400); RBC 3.95 XMIL (4.7-6.1)
[2017-04-28 07:27] LABS: AGAP 13; ALBUMIN 2.6 g/dL (3.5-5.0); ALKALINE PHOSPHATASE 48 U/L (32-122); BUN 13 mg/dL (8-22); CALCIUM 7.5 mg/dL (8.8-10.2); CHLORIDE 104 mmol/L (98-107); COSMO 280; GOT 13 U/L (10-34); GPT 16 U/L (10-44); POTASSIUM 3.6 mmol/L (3.5-5.1); SODIUM 141 mmol/L (136-145); TCO2 24 mmol/L (25-35); TOTAL PROTEIN 4.6 g/dL (6.3-8.3)
[2017-04-28] MEDS: LANOXIN IV SCH (09:28)
[2017-04-28] MEDS ORDERED: DUONEB (A & A) INH SCH (11:45)
--- NOTE | 2017-04-28 12:31 | PROGRESS NOTE ---
DATE: 04/28/2017 SUBJECTIVE: The patient says his abdominal pain is improving. No nausea or vomiting. He is walking around today. OBJECTIVE: Vital signs: He is afebrile. Vital signs are stable. General: He is alert and oriented x4. No acute distress. CV: Regular rate and rhythm. Respiratory: No work of breathing. GI: Soft, nondistended. Minimally tender in the epigastrium. No rebound or guarding. LABORATORY: White blood cell count 15,000, hemoglobin 12.3, platelet count 154,000. Electrolytes reviewed and unremarkable. Liver function tests were normal. Lipase is 19. ASSESSMENT AND PLAN: This is a 71-year-old male with gallstone pancreatitis. He appears to be improving. He may be ready for a laparoscopic cholecystectomy tomorrow. We will make him NPO tonight in case. cc: Clayton Branham MD
--- NOTE | 2017-04-28 15:53 | PROGRESS NOTE ---
DATE: 04/28/2017 SUBJECTIVE: The patient complains of nausea and mild abdominal pain. OBJECTIVE: Vital Signs: Temperature 98 degrees, blood pressure 140/68, heart rate 64, respirations 17, O2 saturations 96% on 2 L nasal cannula. General: This is an elderly male, lying in bed, in no acute distress. Head: Normocephalic, atraumatic. Heart: S1, S2. Normal. Regular rate and rhythm. Lungs: Mild expiratory wheezes. No crackles. No rales. Abdomen: Positive bowel sounds. Soft, nontender, nondistended. Extremities: No edema. No cyanosis. No calf tenderness. Neurologic: The patient is alert oriented x3. LABORATORY: White blood cell count 15, hemoglobin 12, hematocrit 36, platelets 154,000. Sodium 141, potassium 3.6. Chloride 104, CO2 24, BUN 13, creatinine 0.6, glucose 81. ASSESSMENT AND PLAN: 1. Acute pancreatitis. Slowly improving. The patient's lipase is now normal and his abdominal pain has improved. 2. Gallstone pancreatitis. General Surgery is following for an eventual cholecystectomy. 3. Leukocytosis. Slowly improving daily. Continue on Zosyn. 4. Chronic back pain. Continue on p.r.n. pain medication. 5. Hypertension. Controlled. 6. Deep vein thrombosis prophylaxis. Continue on Lovenox. 7. Gastrointestinal prophylaxis. Continue on IV Protonix. cc: Nelly Silva MD
[2017-04-28] MEDS: XOPENEX NEB INH SCH ×2 (16:16→16:27)
[2017-04-28] MEDS: PROTONIX IV SCH (16:37)
[2017-04-28] MEDS: SODIUM CHLORIDE 0.9% INJ SCH (16:37)
[2017-04-28] MEDS: LOVENOX SUBQ SCH (16:37)
[2017-04-29] MEDS: ZOSYN 4.5 GM/NS 4.5 GM/100 ML IVPB IV SCH ×5 (00:35→23:27)
[2017-04-29 07:36] LABS: MANUAL DIFF NEEDED? NO
[2017-04-29 07:54] LABS: BASO% 0.3 % (0.0-0.8); EOS# 0.74 X1000 (0.0-0.7); EOS% 5.2 % (0.0-10.0); HEMATOCRIT 40.1 % (42.0-52.0); HEMOGLOBIN 13.9 g/dL (14.0-18.0); IMM GRAN# 0.12 X1000 (0.0-0.04); IMM GRAN% 0.8 % (0.0-0.5); LYMPH# 1.57 X1000 (1.2-3.4); MCH 31.4 PG (27-31); MCHC 34.7 g/dL (33-37); MCV 90.7 FL (81-99); MONO# 1.63 X1000 (0.11-0.59); MONO% 11.4 % (1.7-9.3); MPV 11.5 FL (7.4-10.4); NEUT% 71.3 % (42.2-75.2); PLT 221 X1000 (130-400); RBC 4.42 XMIL (4.7-6.1)
[2017-04-29 08:16] LABS: AGAP 17; ALKALINE PHOSPHATASE 67 U/L (32-122); BUN 10 mg/dL (8-22); CALCIUM 7.9 mg/dL (8.8-10.2); CHLORIDE 98 mmol/L (98-107); COSMO 273; GOT 14 U/L (10-34); GPT 16 U/L (10-44); POTASSIUM 3.2 mmol/L (3.5-5.1); SODIUM 137 mmol/L (136-145); TCO2 22 mmol/L (25-35); TOTAL BILIRUBIN 1.01 mg/dL (0.20-1.00); TOTAL PROTEIN 6.1 g/dL (6.3-8.3)
[2017-04-29] MEDS: LANOXIN IV SCH (09:33)
[2017-04-29] MEDS: XOPENEX NEB INH SCH ×4 (09:34→22:50)
--- NOTE | 2017-04-29 09:38 | PROGRESS NOTE ---
DATE: 04/29/2017 PRESENT ILLNESS: Patient has gallstone pancreatitis which I think is responsible for the patient's leukocytosis. MEDICATIONS: Patient is on high-dose Zosyn. EXAM: Vital Signs: Temperature is 99.4 degrees, pulse 75, respirations 18, blood pressure 136/63. Generally: This is a fairly healthy-appearing, elderly male. He looks much better than he did a few days ago. He is not complaining of any pain, nausea or vomiting. Lungs: Clear to auscultation. Cardiovascular: Regular heart rate. Abdomen: Soft and nontender. LAB AND X-RAY: There is no new x-ray today. The lab [place] [address], hemoglobin 13.9, and platelet count 221,000. Creatinine is 0.7. GFR is greater than 60. Liver function studies are normal. The patient's lipase is only 19. ASSESSMENT AND PLAN: Patient has gallstone pancreatitis. I am going to continue with his Zosyn. Dr. Bahena is going to take the patient to the operative room for a laparoscopic cholecystectomy. COMORBIDITIES: He is elderly. He had cholecystitis and most likely 1 of the gallstones entered the common bile duct and was responsible for the patient to develop pancreatitis. cc: Farrukh Harrell MD
[2017-04-29] MEDS ORDERED: KLOR-CON PO ONE (09:42)
[2017-04-29] MEDS ORDERED: SODIUM CHLORIDE 0.9% ONE (10:04)
[2017-04-29] MEDS ORDERED: LR 1,000 ML ONE ×2 (10:04→13:11)
[2017-04-29] MEDS ORDERED: MARCAINE 0.25% PF/EPI 1:200,000 ONE (10:05)
--- NOTE | 2017-04-29 10:33 | PROGRESS NOTE ---
DATE: 04/29/2017 SUBJECTIVE: The patient is scheduled to undergo a laparoscopic cholecystectomy today. He is resting comfortably in bed, awaiting surgery. OBJECTIVE: Vital Signs: Temperature 99 degrees, blood pressure 136/63, heart rate 72, respirations 18, O2 saturation is 96% on 2 L nasal cannula. General: This is an elderly male, lying in bed, in no acute distress. Head: Normocephalic, atraumatic. Heart: S1, S2. Normal. Regular rate and rhythm. Lungs: Clear to auscultation bilaterally. No crackles. Abdomen: Positive bowel sounds. Soft, nontender, nondistended. Extremities: No edema. No cyanosis. No calf tenderness. Neurologic: The patient is alert and oriented x3. LABS: White blood cell count 14, hemoglobin 13.9, hematocrit 40, platelets 221,000. Sodium 137, potassium 3.2, chloride 98, CO2 22, BUN 10, creatinine 0.7, glucose 93. ASSESSMENT AND PLAN: 1. Acute pancreatitis, resolving. 2. Gallstone pancreatitis. The patient is scheduled to undergo a laparoscopic cholecystectomy today. 3. Leukocytosis. Continue on IV Zosyn. This appears to be improving slowly. 4. Chronic pain. Continue on p.r.n. pain medication. 5. Hypertension. Controlled. 6. Deep vein thrombosis prophylaxis. Continue on Lovenox. 7. Deep vein thrombosis prophylaxis. Continue on IV Protonix. cc: Nelly Silva MD
[2017-04-29] MEDS ORDERED: POTASSIUM CHLORIDE 60 MEQ in NS 500 ML IV ONE (11:00)
--- NOTE | 2017-04-29 11:15 | Diag Imaging Result Doc PS360 ---
EXAM: OPERATIVE CHOLANGIOGRAM HISTORY: CHOLECYSTITIS TECHNIQUE: One view, intraoperative COMMENT: There is contrast throughout the common hepatic and common bile ducts without evidence of filling defect or obstruction. There is contrast in the duodenum. IMPRESSION: No evidence of retained stones. Electronically signed by Saul Larkin 04/29/2017 11:13 AM
[2017-04-29] MEDS ORDERED: DIPRIVAN 1% ONE (11:31)
[2017-04-29] MEDS ORDERED: FENTANYL ONE (11:31)
[2017-04-29] MEDS: DILAUDID IV PRN ×3 (12:24→21:34)
[2017-04-29] MEDS ORDERED: NORCO-10 PO PRN (13:06)
[2017-04-29] MEDS ORDERED: LABETALOL (DOSE) ONE (13:10)
[2017-04-29] MEDS ORDERED: NEOSTIGMINE ONE (13:10)
[2017-04-29] MEDS ORDERED: ZOFRAN ONE (13:10)
[2017-04-29] MEDS ORDERED: XYLOCAINE-MPF 2% ONE (13:11)
[2017-04-29] MEDS ORDERED: DECADRON ONE (13:11)
[2017-04-29] MEDS ORDERED: QUELICIN (DOSE) ONE (13:11)
[2017-04-29] MEDS ORDERED: ZEMURON ONE (13:11)
[2017-04-29] MEDS ORDERED: ROBINUL ONE (13:11)
--- NOTE | 2017-04-29 13:16 | OPERATIVE NOTE ---
PROCEDURE DATE: 04/29/2017 PROCEDURE PERFORMED: Laparoscopic cholecystectomy with operative cholangiogram. SURGEON: Karri Bahena MD COVERAGE SPECIALIST RN: Selvin Pal MD PREOPERATIVE DIAGNOSES: 1. Gallstone pancreatitis. 2. Chronic cholecystitis. POSTOPERATIVE DIAGNOSES: 1. Gallstone pancreatitis. 2. Chronic cholecystitis. FINDINGS: The cholangiogram revealed a normal size common duct, free flow in the duodenum, no intraluminal filling defects were seen. DESCRIPTION OF PROCEDURE: Satisfactory general endotracheal anesthesia achieved, the abdomen was prepped and draped in a sterile fashion. We anesthetized skin at the base of the umbilicus, incised the skin and used an [employer] technique 5 trocar to enter the abdominal cavity. We insufflated through this trocar. Under direct visualization we introduced a 5 trocar in the midclavicular line, a 5 trocar near the anterior axillary line, an 11 mm trocar in the midepigastrium. We placed the patient in reverse Trendelenburg and turned him to the left. We disconnected the omental adhesions from the fundus we grasped the fundus of the gallbladder, reflected it cephalad, and began dissection of the infundibulum. The cystic artery was right on top of the cystic duct. We are able to clip the cystic artery proximally x2, distally x1, and divided it. The cystic duct was then incised with the small scissors. We were able to cannulate the cystic duct and shot the cholangiogram. The findings above were noted. We removed the cholangiogram catheter, and then clipped the cystic duct on the opposite side of cystic ductotomy x2. We then used the cautery spatula to dissect the gallbladder away from the liver. After complete separation of the gallbladder from the liver, we introduced the EndoCatch through the epigastric trocar site. We placed the gallbladder within the bag and then delivered the gallbladder out of the abdominal cavity through the epigastric trocar site. We had to enlarge the incision with to deliver the gallbladder. We looked back, achieved satisfactory hemostasis with electrocautery in the gallbladder fossa. We aspirated what fluid had collected. We then the desufflated and removed our trocars. We closed the fascia of the epigastrium with a 2-0 Polysorb running stitch, placed a 2-0 Polysorb fascial stitch in the umbilicus. We then closed the skin at each incision 4-0 Polysorb subcuticular stitches. Sterile OpSite's were applied. He tolerated it well, was sent to the recovery room in satisfactory condition. cc: Karri Bahena MD
[2017-04-29] MEDS: NS NEB INH SCH (15:35)
[2017-04-29] MEDS: LOVENOX SUBQ SCH (18:35)
[2017-04-29] MEDS: PROTONIX IV SCH (18:35)
[2017-04-29] MEDS: SODIUM CHLORIDE 0.9% INJ SCH (18:35)
[2017-04-29] MEDS: NS 1,000 ML IV SCH (20:44)
[2017-04-30] MEDS: DILAUDID IV PRN ×4 (01:28→17:36)
[2017-04-30] MEDS: XOPENEX NEB INH SCH ×4 (03:56→21:42)
[2017-04-30] MEDS: ZOSYN 4.5 GM/NS 4.5 GM/100 ML IVPB IV SCH ×4 (05:10→23:44)
[2017-04-30 06:33] LABS: MANUAL DIFF NEEDED? NO
[2017-04-30 06:39] LABS: BASO% 0.3 % (0.0-0.8); EOS# 0.16 X1000 (0.0-0.7); EOS% 1.5 % (0.0-10.0); HEMATOCRIT 38.1 % (42.0-52.0); HEMOGLOBIN 12.9 g/dL (14.0-18.0); IMM GRAN# 0.28 X1000 (0.0-0.04); IMM GRAN% 2.6 % (0.0-0.5); LYMPH# 1.41 X1000 (1.2-3.4); LYMPH% 13.1 % (20.5-51.1); MCHC 33.9 g/dL (33-37); MCV 91.6 FL (81-99); MONO# 1.33 X1000 (0.11-0.59); MONO% 12.4 % (1.7-9.3); MPV 10.7 FL (7.4-10.4); NEUT% 70.1 % (42.2-75.2); PLT 211 X1000 (130-400); RBC 4.16 XMIL (4.7-6.1)
[2017-04-30 07:00] LABS: AGAP 10; ALBUMIN 2.6 g/dL (3.5-5.0); ALKALINE PHOSPHATASE 58 U/L (32-122); BUN 10 mg/dL (8-22); CALCIUM 7.4 mg/dL (8.8-10.2); CHLORIDE 102 mmol/L (98-107); COSMO 276; GOT 26 U/L (10-34); GPT 28 U/L (10-44); POTASSIUM 3.5 mmol/L (3.5-5.1); SODIUM 137 mmol/L (136-145); TCO2 25 mmol/L (25-35); TOTAL PROTEIN 5.4 g/dL (6.3-8.3)
[2017-04-30] MEDS: LANOXIN IV SCH (08:49)
[2017-04-30] MEDS: NS 1,000 ML IV SCH (10:02)
[2017-04-30] MEDS: NS NEB INH SCH ×2 (11:01→15:40)
--- NOTE | 2017-04-30 14:09 | PROGRESS NOTE ---
DATE: 04/30/2017 SUBJECTIVE: This patient states that he is doing fine. He is complaining of mild right upper quadrant pain. He is status post laparoscopic cholecystectomy. He denies nausea, vomiting. No diarrhea, no constipation. He is tolerating his diet. Family members at the bedside. OBJECTIVE: Vital Signs: Temperature 98 degrees, pulse 73, respiratory rate 16, blood pressure 122/70, O2 saturation 93 on 2 L of nasal cannula. HEENT: Normocephalic. No trauma. PERRLA. Neck: Supple. No JVD. No masses. Central trachea. Chest: Clear to auscultation. No wheezing. No rales. Abdomen: Soft. Mild tenderness to palpation at the level of the right upper quadrant. Operative wound looks clean, dry and intact. Cardiovascular: RRR. No murmurs. No gallops. Extremities: No edema. No cyanosis. No clubbing. Neurological: The patient is alert and oriented x3. No focal neurological deficits. LABORATORY: WBC 10.7, hemoglobin 12.9, hematocrit 38.1, platelets 211,000. Sodium 137, potassium 3.5, chloride 102, bicarbonate 25, BUN 10, creatinine 0.7, glucose 148, calcium 7.4, albumin 2.6. ASSESSMENT/PLAN: 1. Acute pancreatitis. This is getting better, he is not complaining of epigastric pain and he is tolerating p.o. 2. Gallstone pancreatitis status post laparoscopic cholecystectomy with cholangiogram, no evidence of stones, no intraluminal filling defects were seen. 3. Leukocytosis, resolved. Today the WBC is 10.7. Continue with IV Zosyn as per Infectious Disease Department. 4. Chronic pain. Continue with p.r.n. medication. 5. Hypertension. Controlled. 6. Deep vein thrombosis prophylaxis. Continue with Lovenox. 7. Gastrointestinal prophylaxis. Continue with pantoprazole. DISPOSITION: This patient looks much better, yesterday he had a laparoscopic cholecystectomy, probably I will discharge this patient tomorrow if Surgery Department agree with this. cc: Nolan Cai MD
[2017-04-30] MEDS: PROTONIX IV SCH (17:27)
[2017-04-30] MEDS: LOVENOX SUBQ SCH (17:27)
[2017-05-01] MEDS: XOPENEX NEB INH SCH (03:48)
[2017-05-01] MEDS: ZOSYN 4.5 GM/NS 4.5 GM/100 ML IVPB IV SCH (05:07)
[2017-05-01] MEDS: NS 1,000 ML IV SCH (05:07)
[2017-05-01 06:44] LABS: MANUAL DIFF NEEDED? NO
[2017-05-01 06:54] LABS: BASO% 0.5 % (0.0-0.8); EOS# 1.23 X1000 (0.0-0.7); EOS% 9.8 % (0.0-10.0); HEMATOCRIT 40.5 % (42.0-52.0); HEMOGLOBIN 13.8 g/dL (14.0-18.0); IMM GRAN# 0.38 X1000 (0.0-0.04); LYMPH# 1.97 X1000 (1.2-3.4); LYMPH% 15.7 % (20.5-51.1); MCH 31.3 PG (27-31); MCHC 34.1 g/dL (33-37); MCV 91.8 FL (81-99); MONO# 2.01 X1000 (0.11-0.59); MPV 10.7 FL (7.4-10.4); PLT 254 X1000 (130-400); RBC 4.41 XMIL (4.7-6.1)
[2017-05-01 07:15] LABS: AGAP 13; ALBUMIN 2.9 g/dL (3.5-5.0); ALKALINE PHOSPHATASE 57 U/L (32-122); BUN 8 mg/dL (8-22); CALCIUM 7.8 mg/dL (8.8-10.2); CHLORIDE 100 mmol/L (98-107); COSMO 274; GOT 24 U/L (10-34); GPT 33 U/L (10-44); POTASSIUM 3.3 mmol/L (3.5-5.1); SODIUM 138 mmol/L (136-145); TCO2 25 mmol/L (25-35); TOTAL BILIRUBIN 0.78 mg/dL (0.20-1.00); TOTAL PROTEIN 5.7 g/dL (6.3-8.3)
[2017-05-01] MEDS ORDERED: KLOR-CON PO ONE (07:22)
[2017-05-01 07:26] VITALS: BP 134/79
[2017-05-01] MEDS: LANOXIN IV SCH (08:47)
--- NOTE | 2017-05-01 15:39 | DISCHARGE SUMMARY ---
ADMISSION DATE: 04/24/2017 DISCHARGE DATE: 05/01/2017 CONSULTATIONS: 1. Dr. Karri Bahena. 2. Dr. Villanueva. 3. Dr. García. 4. Dr. Farrukh Harrell. PERTINENT PROCEDURES: 1. Abdomen and pelvis CT showed fairly severe pancreatitis with questionable areas of necrosis in the neck of the pancreas, minimal free intraperitoneal fluid, constipation. 2. Abdominal ultrasound showed possibility of small gallstones or sludge in the gallbladder could not be excluded. No evidence of acute cholecystitis, hepatic steatosis. 3. Echocardiogram showed an EF of 75% to 80%. 4. Laparoscopic cholecystectomy with operative cholangiogram performed by Dr. Karri Bahena. DISCHARGE DIAGNOSES: 1. Acute pancreatitis, improved, tolerating by mouth. 2. Gallstone pancreatitis, status post laparoscopic cholecystectomy, left cholangiogram performed by Dr. Karri Bahena, stable. 3. Leukocytosis, resolved. 4. Chronic pain. Continue with home medicines. 5. Hypertension, controlled. HOSPITAL COURSE: Mr. Powell is a 71-year-old male with a history of SVT, GERD, BPH, who presented with acute onset abdominal pain that woke him up. The pain was very sharp, epigastric pain that radiated directly into his back. The pain was unrelenting and was consistent, associated with 2 episodes of emesis. He came to the ED for evaluation. His laboratory data was consistent with pancreatitis, and a CT showed pancreatic stranding, questionable for area of necrosis in the neck of the pancreas. The patient was admitted to the hospital, started on IV fluids with a GI consult, and added Zosyn for antibiotics for his leukocytosis, as well as checked blood cultures. General Surgery was also consulted. The plan was to allow the patient's pancreas to settle down, continue to trend his enzymes, and when they started to normalize, the patient underwent a laparoscopic cholecystectomy with cholangiogram with Dr. Karri Bahena. He has been cleared from General Surgery for discharge home today. VITAL SIGNS: Temperature is 98.8 degrees, heart rate 84, respirations 21, blood pressure is 134/79, O2 is 97%. DISCHARGE DIET: Full liquid, and advance as tolerated. DISCHARGE MEDICATIONS: As per Dr. Menard: 1. Augmentin 875 mg p.o. every 12 hours for 5 days. 2. Aspirin 81 mg p.o. q.a.m. 3. Zebeta 5 mg p.o. daily. 4. Digoxin 200 mcg p.o. q.a.m. 5. [place] 10 one each p.o. every 4 hours p.r.n. pain. 6. Prilosec 40 mg p.o. q.a.m. 7. Flomax 0.4 mg p.o. daily. FOLLOWUP: Mr. Powell will follow up with Dr. Bahena on 05/13/2017, as well as his primary care physician, Dr. Malcolm Wade, in 7 to 10 days. The patient can return to the ED for any worsening of symptoms. TIME SPENT: Discharge time was 30 minutes. Dictated by MELINA Hurtado for Nolan Cai MD cc: MD Malcolm Fall MD
[2017-05-01] MEDS ORDERED: AUGMENTIN PO SCH (21:00)
--- NOTE | 2017-05-09 17:17 | PROVIDER DOCUMENTATION ---
This chart was entered by Caroline Anne Scribe, acting as scribe for Layo Irizarry MD. HPI-Abdominal Pain/GI Problem - General Chief Complaint: Abdominal Pain Stated Complaint: UPPER ABD PAIN Time Seen by Provider: 04/24/17 11:24 Source: patient Allergies/Adverse Reactions: Patient Allergies Allergy/AdvReac Type Severity Reaction Status Date / Time meperidine [From Demerol] Allergy Unknown Verified 04/24/17 10:18 morphine Allergy ANAPHYLAXIS Verified 04/24/17 10:18 Home Medications: Home Medication List Medication Instructions Recorded Confirmed Last Taken Type Aspirin [Aspir-Low] 81 mg PO QAM 04/24/17 04/24/17 1 Day Ago History Bisoprolol [Zebeta] 5 mg PO DAILY 04/24/17 04/24/17 1 Day Ago History Digoxin 250 mcg PO QAM 04/24/17 04/24/17 04/24/17 History Omeprazole 40 mg PO QAM 04/24/17 04/24/17 04/24/17 History Tamsulosin [Flomax] 0.4 mg PO DAILY 04/24/17 04/24/17 1 Day Ago History Amoxicillin/Pot Clavulanate 875 mg PO Q12HR #10 tablet 05/01/17 Unknown Rx [Augmentin] Hydrocodone/APAP 10 mg/325 mg 1 each PO Q4H PRN PRN #20 tablet 05/01/17 Unknown Rx [Blue Eye-10] - History of Present Illness-ABD Nature of Presenting Problems: Pt is 71 y/o M presents to the ED with epigastric pain. Pt states pain started this am at 0400. Pt states having a BM yesterday. Pt states 2 episodes of V. Pt states pain radiates to back. Pt states hx of hiatal hernia. Abdominal Pain Onset Location: reports: epigastric Pain Radiation: reports: back Quality of Pain: reports: aching Severity in ED: reports: mild Onset/Duration: reports: this morning (0400) Timing: reports: still present Activities at Onset: reports: light activity Exposure to sick contacts?: No Modifying Factors: improves with: nothing Associated Symptoms: reports: back/neck pain (back pain), nausea, vomiting Last BM: 24 hours ago Dark Stools Present?: reports: none noticed Rectal Bleeding: reports: none Rectal Pain: reports: none Emesis Description: reports: none Bruising or Bleeding Gums?: No Similar Symptoms Previously?: Yes Recently seen or treated by another doctor?: No Review of Systems - Adult - REVIEW OF SYSTEMS - ADULT Constitutional: reports: no symptoms reported Eyes: reports: no symptoms reported Ears, Nose, Mouth & Throat: reports: no symptoms reported Cardiovascular: reports: no symptoms reported Respiratory: reports: no symptoms reported Gastrointestinal: reports: abdominal pain (epigastric), nausea, vomiting. denies: diarrhea Genitourinary: reports: no symptoms reported Musculoskeletal: reports: back pain. denies: bone pain, joint pain, neck pain Integumentary: reports: no symptoms reported Neurological: reports: no symptoms reported Psychiatric: reports: no symptoms reported Endocrine: reports: no symptoms reported Hematologic/Lymphatic: reports: no symptoms reported Allergic/Immunologic: reports: no symptoms reported All Other Systems: Reviewed and Negative Past History - Adult - PAST MEDICAL HISTORY-ADULT Review of Records: reports: Nursing Assessment Review, Medications Reviewed, Social history reviewed & non-contributory. Major Childhood Illnesses: reports: denies history Cardiovascular: reports: denies history Respiratory: reports: denies history Gastrointestinal: reports: denies history Obstetrical/Gynecological: reports: denies history Genitourinary: reports: prostate cancer Musculoskeletal: reports: denies history Neurological: reports: denies history Endocrine/Immune: reports: denies history Other Conditions: reports: denies history - PRIOR SURGERIES/PROCEDURES Surgical/Procedure History: reports: joint replacement - IMMUNIZATION STATUS Childhood Immunizations: See Nurse Assessment Flu Vaccine: See Nurse Assessment - FAMILY HISTORY Family History: reviewed, not pertinent - SOCIAL HISTORY Smoking: denies Substance Use: denies Living Situation: family Physical Exam-General - PHYSICAL EXAM-ADULT Initial Vital Signs Reviewed: Yes - CONSTITUTIONAL General Appearance: appears well, alert, no apparent distress - EYES Eyes: PERRL/EOMI, pink conjunctivae - HEAD, EARS, NOSE, MOUTH & THROAT HENMT: normocephalic/atraumatic, moist mucous membranes, normal ENT inspection - NECK Neck: non-tender, full range of motion, supple, normal inspection - RESPIRATORY Respiratory: chest non-tender, lungs clear, normal breath sounds - CARDIOVASCULAR Cardiovascular: normal peripheral pulses, regular rate, rhythm - GASTROINTESTINAL (ABDOMEN) Abdominal Exam: normal bowel sounds, soft, tenderness - LYMPHATIC Lymphatic: no adenopathy - MUSCULOSKELETAL Back Exam: normal inspection, no CVA tenderness, no vertebral tenderness Extremity: normal range of motion, non-tender, normal gait, normal inspection - SKIN Integumentary: normal color, normal turgor, warm/dry - NEUROLOGIC Neurologic: grossly normal - PSYCHIATRIC Psych/Mental Status: normal mood/affect, oriented x 3 Progress - PLAN OF CARE/RESULTS Progress/Plan/Lab Results: Vital Signs - 8 hr 04/24/17 10:05 Temperature 97.4 F L Pulse Rate 60 Respiratory Rate 18 Blood Pressure 150/73 O2 Sat by Pulse Oximetry 100 Orders Category Date Time Status Saline Loc DIRECTED Care 04/24/17 11:18 Active NPO Diet 04/24/17 11:18 Active AMYLASE [CHEM] Stat Lab 04/24/17 11:18 Ordered CBC WITH ELECTRONIC DIFF [HEME] Stat Lab 04/24/17 11:18 Ordered COMPREHENSIVE METABOLIC PANEL [CHEM] Stat Lab 04/24/17 11:18 Ordered LIPASE [CHEM] Stat Lab 04/24/17 11:18 Ordered URINALYSIS W/POSS RFLX CULT-1 [URINALYSIS] Stat Lab 04/24/17 11:18 Uncollected Result Diagrams: 05/01/17 06:23 05/01/17 06:23 - CT/MRI 1 CT Study: Abdomen, Pelvis Impression: Abnormal (fairly severe pancreatitis with questionable areas of necrosis in the neck of the pancreas.) CT Results: minimal free intraoeritoneal fluid. constipation - CONSULTS/PCP/HOSPITALIST Notification #1 *Consult/PCP/Hospitalist*: Dr. Silva Time Discussed: 14:22 Reason/Comments: Dr. Irizarry consulted with Dr. Silva about admit of PT Consult Disposition: Admit Departure - Departure Date of Disposition Decision: 04/24/17 Time of Disposition Decision: 14:19 DIAGNOSIS: Pancreatitis Disposition: ADMITTED INPATIENT 09 Certified Medical Emergency: Emergent Condition: Stable - Critical Care Note This patient required my direct & personal management of CC.: No This chart was documented by the indicated scribe, (Caroline Anne Scribe) and accurately reflects the services I performed and decisions made by me, Layo Irizarry MD, as attested by the provider's signature.
== END 2017-05-01 11:39 | disposition home or self-care (01) ==
LOC: ED 09:53 → SUATTDRO 15:19 → 3N 15:19
PROVIDERS: ATTEND Internal Medicine